=== PATIENT | female | born 1995 | race Two or more races ===

== ENCOUNTER 2021-03-25 20:01 | Emergency (ER) | payer OTHER ==
[~2021-03-25] VITALS: Ht 167.6 cm; Wt 65.3 kg
[2021-03-25] MEDS ORDERED: PRENATALES (20:28)
[2021-03-25] MEDS ORDERED: FOLIC ACID0.8 M1 (20:28)
== END 2021-03-25 22:55 | disposition home or self-care (01) ==
LOC: ER 20:01
DX: O20.0 Threatened abortion (principal)

== ENCOUNTER 2021-08-05 06:24 | Inpatient (IN) | payer OTHER ==
[~2021-08-05] VITALS: Ht 167.6 cm; Wt 71.7 kg
[~2021-08-05 06:24] MED LIST: FOLIC ACID0.8 M1; PRENATALES
== END 2021-08-06 09:42 | disposition home or self-care (01) | DRG 807 ==
LOC: LDR 06:24 → OB/GYN 20:44
PROVIDERS: ADMIT Obstetrics & Gynecology; ATTEND Obstetrics & Gynecology
PROC: 10E0XZZ Delivery of Products of Conception, External Approach (ICD-10-PCS; principal; 2021-08-05)
PROC: 10907ZC Drainage of Amniotic Fluid, Therapeutic from Products of Conception, Via Natural or Artificial Opening (ICD-10-PCS; 2021-08-05)
PROC: 3E0DXGC Introduction of Other Therapeutic Substance into Mouth and Pharynx, External Approach (ICD-10-PCS; 2021-08-05)
PROC: 3E0P7VZ Introduction of Hormone into Female Reproductive, Via Natural or Artificial Opening (ICD-10-PCS; 2021-08-05)
DX: O36.4XX0 Maternal care for intrauterine death, not applicable or unspecified (principal); O69.81X0 Labor and delivery complicated by cord around neck, without compression, not applicable or unspecified; Z37.1 Single stillbirth; Z3A.30 30 weeks gestation of pregnancy

== ENCOUNTER 2022-03-06 17:37 | Emergency (ER) | payer OTHER ==
[~2022-03-06] VITALS: Ht 167.6 cm; Wt 68.0 kg
== END 2022-03-06 20:59 | disposition home or self-care (01) ==
LOC: ER 17:37
DX: O46.91 Antepartum hemorrhage, unspecified, first trimester (principal); Z3A.10 10 weeks gestation of pregnancy; O41.91X0 Disorder of amniotic fluid and membranes, unspecified, first trimester, not applicable or unspecified

== ENCOUNTER 2022-09-03 19:15 | Outpatient (CLI) | payer OTHER ==
[~2022-09-03] VITALS: Ht 167.6 cm; Wt 78.5 kg
== END 2022-09-03 20:44 | disposition left against medical advice (07) ==
LOC: OBS/DEL 19:15
PROVIDERS: ATTEND Obstetrics & Gynecology
DX: O26.893 Other specified pregnancy related conditions, third trimester (principal); Z3A.36 36 weeks gestation of pregnancy

== ENCOUNTER 2022-09-15 07:57 | Inpatient (IN) | payer OTHER ==
[~2022-09-15] VITALS: Ht 167.6 cm; Wt 77.1 kg
== END 2022-09-17 14:01 | disposition home or self-care (01) | DRG 807 ==
LOC: LDR 07:57 → OB/GYN 14:46
PROVIDERS: ADMIT Obstetrics & Gynecology; ATTEND Obstetrics & Gynecology
PROC: 10E0XZZ Delivery of Products of Conception, External Approach (ICD-10-PCS; principal; 2022-09-15)
PROC: 0KQM0ZZ Repair Perineum Muscle, Open Approach (ICD-10-PCS; 2022-09-15)
PROC: 4A1HXCZ Monitoring of Products of Conception, Cardiac Rate, External Approach (ICD-10-PCS; 2022-09-15)
DX: O70.1 Second degree perineal laceration during delivery (principal); Z37.0 Single live birth; Z3A.38 38 weeks gestation of pregnancy; Z20.822 Contact with and (suspected) exposure to COVID-19

== ENCOUNTER 2025-03-01 19:29 | Emergency (ER) | payer OTHER ==
[~2025-03-01] VITALS: Ht 167.6 cm; Wt 63.5 kg
[2025-03-01] MEDS ORDERED: ACETAMINOPHEN 500 MG GEL..CAP PO ONE ×2 (23:15→23:25)
[2025-03-01 23:23] LABS: HEMATOCRIT 38.2 % (36.0-45.00); HEMOGLOBIN 13.3 g/dL (12.0-15.00); MEAN CORPUSCULAR HEMOGLOBIN 33.7 pg (27.00-32.0); MEAN CORPUSCULAR HGB CONC 34.7 g/dl (32.0-36.0); PLATELET COUNT 274 K/uL (150-450); RED BLOOD COUNT 3.93 M/uL (4.00-6.00); RED CELL DISTRIBUTION WIDTH 12.8 % (11.5-14.5)
== END 2025-03-01 23:30 ==
LOC: ER 19:30
PROVIDERS: Emergency Medicine
DX: O41.8X90 Other specified disorders of amniotic fluid and membranes, unspecified trimester, not applicable or unspecified (principal); Z3A.01 Less than 8 weeks gestation of pregnancy

== ENCOUNTER 2025-08-23 13:24 | Outpatient (CLI) | payer OTHER | END 2025-08-23 13:43 | disposition home or self-care (01) | LOC: NST 13:24 | PROVIDERS: ATTEND Obstetrics & Gynecology | DX: Z34.83 Encounter for supervision of other normal pregnancy, third trimester (principal) ==

== ENCOUNTER 2025-09-06 13:49 | Outpatient (CLI) | payer OTHER | END 2025-09-06 14:25 | disposition home or self-care (01) | LOC: NST 13:49 | PROVIDERS: ATTEND Obstetrics & Gynecology Gynecology | DX: Z34.83 Encounter for supervision of other normal pregnancy, third trimester (principal) ==

== ENCOUNTER → 2025-10-13 | Outpatient (CLI) | payer OTHER ==
[2025-10-13 15:26] VITALS: BP 107/66
[2025-10-13 17:10] VITALS: BP 107/66
== END | disposition home or self-care (01) ==
LOC: OBS/DEL 15:38
PROVIDERS: ATTEND Obstetrics & Gynecology
DX: O26.893 Other specified pregnancy related conditions, third trimester (principal); Z3A.38 38 weeks gestation of pregnancy